=== PATIENT | female | born 1955 | race Caucasian/White ===

== ENCOUNTER 2022-07-02 07:54 | Emergency (ER) | payer OTHER ==
[~2022-07-02] VITALS: Ht 149.9 cm; Wt 79.0 kg
[2022-07-02] MEDS ORDERED: ALBUTEROL SULF 2.5 MG/0.5ML(0.5%) NEB SOLN NEB ONE (08:15)
[2022-07-02] MEDS ORDERED: LABETALOL HCL 5 MG/ML 4ML SYRINGE IV ONE (08:15)
[2022-07-02] MEDS ORDERED: methylPREDNISolone SOD SUCC 125 MG/2 ML VL IV ONE (08:15)
[2022-07-02] MEDS ORDERED: IPRATROPIUM BROM 0.5 MG/2.5ML INH SOL NEB ONE (08:15)
[2022-07-02 08:31] LABS: Basophils # (auto) 0.1 10 ^3/uL (0-0.2); Basophils % (auto) 0.7 % (0.0-2.0); Eosinophils # (auto) 0.3 10 ^3/uL (0-0.8); Eosinophils % (auto) 3.5 % (0.0-7.0); Hematocrit 45.7 % (36.0-46.0); Hemoglobin 15.5 g/dL (12.2-16.2); Lymphocytes # (auto) 1.8 10 ^3/uL (0.4-5.4); Lymphocytes % (auto) 19.4 % (10.0-50.0); Mean Corpuscular Hemoglobin 27.3 pg (28.0-32.0); Mean Corpuscular Volume 80.5 fL (80.0-100.0); Monocytes # (auto) 0.6 10 ^3/uL (0-1.3); Monocytes % (auto) 6.1 % (0.0-12.0); Neutrophils # (auto) 6.4 10 ^3/uL (1.6-8.6); Neutrophils % (auto) 70.3 % (37.0-80.0); Nucleated Red Blood Cells % 0.1 %; Red Blood Cells 5.68 10^6/uL (4.0-5.20); Red Cell Distribution Width 15.6 % (11.8-14.3); White Blood Cell 9.1 10^3/uL (4.4-10.8)
[2022-07-02 09:00] LABS: Calcium 9.4 mg/dL (8.5-10.1); Potassium 4.5 mmol/L (3.5-5.1)
[2022-07-02 09:05] LABS: BUN/Creatinine Ratio 24.3 (10.0-20.0); Bilirubin, Total 0.4 mg/dL (0.2-1.0); Total Protein 7.2 g/dL (6.4-8.2)
[2022-07-02] MEDS ORDERED: ALBUAER3 IN (09:22)
[2022-07-02] MEDS ORDERED: PANT40TA2 PO (09:22)
[2022-07-02] MEDS ORDERED: PRED20TA2 PO (09:22)
[2022-07-02 09:23] VITALS: BP 178/77
== END 2022-07-02 09:33 | disposition home or self-care (01) ==
LOC: ER 07:54
DX: J45.901 Unspecified asthma with (acute) exacerbation (principal); I16.0 Hypertensive urgency; I10 Essential (primary) hypertension
CPT/HCPCS: 36415; 71045; 80053; 83880; 84484; 85025; 85379; 94640; 96374; 96375; 99291; J2930; J3490; J7644

== ENCOUNTER 2022-10-06 10:03 | Emergency (ER) | payer OTHER ==
[~2022-10-06] VITALS: Ht 149.9 cm; Wt 82.5 kg
[~2022-10-06 10:03] MED LIST: ALBUAER3 IN; PANT40TA2 PO; PRED20TA2 PO
[2022-10-06] MEDS ORDERED: cloNIDine HCL 0.1 MG TAB PO ONE (10:30)
[2022-10-06] MEDS ORDERED: traMADol HCL 50 MG TAB PO ONE (11:00)
[2022-10-06] MEDS ORDERED: TRAM50TA2 PO (11:52)
[2022-10-06 11:56] VITALS: BP 127/56
== END 2022-10-06 12:02 | disposition home or self-care (01) ==
LOC: ER 10:03
DX: I10 Essential (primary) hypertension (principal); J45.909 Unspecified asthma, uncomplicated; Z76.0 Encounter for issue of repeat prescription; Z79.899 Other long term (current) drug therapy

== ENCOUNTER → 2023-08-24 | Outpatient (CLI) | payer OTHER ==
[~2023-08-24] MED LIST changes: +ALBUTEROL SULF 2.5 MG/0.5ML(0.5%) NEB SOLN ONE; +TRAM50TA2 PO
== END | disposition home or self-care (01) ==
LOC: RT 10:30
PROVIDERS: ATTEND Internal Medicine Pulmonary Disease
DX: R06.02 Shortness of breath (principal); R06.09 Other forms of dyspnea
CPT/HCPCS: 94060; 94727; 94729

== ENCOUNTER 2023-12-24 11:46 | Emergency (ER) | payer OTHER ==
[~2023-12-24] VITALS: Ht 152.4 cm; Wt 83.7 kg
[~2023-12-24 11:46] MED LIST changes: -ALBUTEROL SULF 2.5 MG/0.5ML(0.5%) NEB SOLN ONE
[2023-12-24 13:06] VITALS: BP 168/77; PULSE 110; RESP 16; TEMP 98.5; O2SAT 97
[2023-12-24] MEDS ORDERED: BACDST PO (14:19)
[2023-12-24] MEDS: cefTRIAXone SOD 1,000 MG VL IM ONE (14:21)
== END 2023-12-24 14:20 | disposition home or self-care (01) ==
LOC: ER 11:46
DX: L03.311 Cellulitis of abdominal wall (principal); J45.909 Unspecified asthma, uncomplicated; I10 Essential (primary) hypertension; Z79.52 Long term (current) use of systemic steroids; Z79.899 Other long term (current) drug therapy; Z88.2 Allergy status to sulfonamides
CPT/HCPCS: 96372; 99283; J0696

== ENCOUNTER 2025-02-16 10:44 | Outpatient (CLI) | payer OTHER ==
[~2025-02-16 10:44] MED LIST changes: +BACDST PO
== END 2025-02-16 17:00 | disposition home or self-care (01) ==
LOC: RT 10:44
PROVIDERS: ATTEND Internal Medicine Pulmonary Disease
DX: J44.89 Other specified chronic obstructive pulmonary disease (principal)
CPT/HCPCS: 94060; 94727; 94729